=== PATIENT | female | born 1985 ===

== ENCOUNTER 2018-09-15 21:11 | Emergency (ER) | payer OTHER ==
[2018-09-15 21:30] VITALS: RESP 18; O2SAT 98
--- NOTE | 2018-09-15 21:38 | ED PDOC ---
Arrival/HPI - General Chief Complaint: Cough, Cold, Congestion Historian: Patient - History of Present Illness Narrative History of Present Illness (Text): 09/15/18 21:36 33 y/o female, no significant pmh, nkda, c/o runny nose/cough/fatigue x 2 days with no recent traveling. Pt. has positive sick contact with another patient which confirmed with +influenza, no chills, no night sweat, no abdominal or pelvic pain, no dizziness, no other medical or psychological complaints. Past Medical History - Provider Review Nursing Documentation Reviewed: Yes - Infectious Disease Hx of Infectious Diseases: None - Cardiac Hx Cardiac Disorders: No - Psychiatric Hx Substance Use: No - Surgical History Other/Comment: breast reduction - Anesthesia Hx Anesthesia: No Family/Social History - Physician Review Nursing Documentation Reviewed: Yes Family/Social History: Unknown Family HX Smoking Status: Never Smoked Hx Alcohol Use: No Hx Substance Use: No Allergies/Home Meds Allergies/Adverse Reactions: Allergies No Known Allergies Allergy (Verified 09/15/18 21:30) Review of Systems - Review of Systems Constitutional: Fatigue, Fevers Eyes: absent: Vision Changes ENT: Rhinorrhea. absent: Hearing Changes Respiratory: Cough, Wheezing. absent: SOB, Sputum Cardiovascular: absent: Chest Pain Gastrointestinal: absent: Abdominal Pain, Diarrhea, Nausea, Vomiting Musculoskeletal: Myalgias. absent: Arthralgias, Back Pain, Neck Pain, Joint Swelling Skin: absent: Rash, Pruritis Neurological: absent: Headache, Dizziness Psychiatric: absent: Anxiety, Depression, Suicidal Ideation Physical Exam Vital Signs Reviewed: Yes Vital Signs Temp Pulse Resp BP Pulse Ox 09/15/18 21:30 99.2 F 103 H 18 115/77 98 Temperature: Afebrile Blood Pressure: Normal Pulse: Tachycardic Respiratory Rate: Normal Appearance: Positive for: Well-Appearing, Non-Toxic, Comfortable Pain Distress: Mild Mental Status: Positive for: Alert and Oriented X 3 - Systems Exam Head: Present: Atraumatic, Normocephalic Pupils: Present: PERRL Extroacular Muscles: Present: EOMI Conjunctiva: Present: Normal Ears: Present: NORMAL TM, Normal Canal. No: Erythema Mouth: Present: Moist Mucous Membranes Pharnyx: No: ERYTHEMA, EXUDATE, TONSILS ENLARGED Nose (External): Present: Atraumatic. No: Abrasion, Contusion, Laceration Nose (Internal): Present: Normal Inspection, No Active Bleeding, Rhinorrhea. No: Septal Hematoma, Epistaxis Neck: Present: Normal Range of Motion, Trachea Midline. No: Meningeal Signs, MIDLINE TENDERNESS, Paraspinal Tenderness, Lymphadenopathy Respiratory/Chest: Present: Clear to Auscultation, Good Air Exchange. No: Respiratory Distress, Accessory Muscle Use, Wheezes, Decreased Breath Sounds, Rales, Retracting, Rhonchi, Tachypneic, Tender to Palpation Cardiovascular: Present: Regular Rate and Rhythm, Normal S1, S2. No: Murmurs Abdomen: No: Tenderness, Distention, Peritoneal Signs, Rebound, Guarding Back: Present: Normal Inspection Upper Extremity: Present: Normal Inspection, Normal ROM, Neurovascularly Intact, Capillary Refill < 2s. No: Cyanosis, Edema, Deformity Lower Extremity: Present: Normal Inspection, Normal ROM, Neurovascularly Intact, Capillary Refill < 2 s. No: Edema, Deformity Neurological: Present: GCS=15, CN II-XII Intact, Speech Normal, Motor Func Grossly Intact, Gait Normal, Memory Normal Skin: Present: Warm, Dry, Normal Color. No: Rashes Psychiatric: Present: Alert, Oriented x 3, Normal Insight, Normal Concentration Medical Decision Making ED Course and Treatment: 09/15/18 21:38 -rapid flu -tylenol and azithromycin -observe and reassess 09/15/18 22:15 -Urine hcg is negative -Rapid flu is negative, highly suspected, tamiflu ordered -Pt. is non-toxic looking, daughter positive for influenza in the ER, will treat as influenza as well with URI. -Discharge home with tamiflu, zithromycin, bromfed dm, tylenol, stay hydrated, follow up with your own pmd within 2 days, return to the ER for any new or worsening signs or symptoms. - PA / TAPE STRINGER / Resident Statement / has reviewed & agrees with the documentation as recorded. Disposition/Present on Arrival - Present on Arrival Any Indicators Present on Arrival: No History of DVT/PE: No History of Uncontrolled Diabetes: No Urinary Catheter: No History of Decub. Ulcer: No History Surgical Site Infection Following: None - Disposition Have Diagnosis and Disposition been Completed?: Yes Diagnosis: Flu-like symptoms, URI (upper respiratory infection) Disposition: HOME/ ROUTINE Disposition Time: 22:17 Patient Plan: Discharge Condition: GOOD Additional Instructions: -Discharge home with tamiflu, zithromycin, bromfed dm, tylenol, stay hydrated, follow up with your own pmd within 2 days, return to the ER for any new or wor sening signs or symptoms. Prescriptions: Acetaminophen [Tylenol] 2 cap PO QID #30 capsule Azithromycin [Zithromax] 250 mg PO DAILY #4 tab Brompheniramine/Pseudoephed/Dm [Bromfed Dm Cough 118 ml] 10 ml PO QID PRN #250 ml PRN Reason: Other Oseltamivir Cap [Tamiflu] 75 mg PO BID #9 cap Referrals: PCP,NO [Primary Care Provider] - [place] up with [place] [facility] [place] [facility] [place] - Follow up with primary Forms: [email or web address] (Portuguese), WORK NOTE
[2018-09-15 23:04] VITALS: BP 129/72; PULSE 92
[2018-09-15 23:44] VITALS: TEMP 99
== END 2018-09-15 23:44 | disposition home or self-care (01) ==
LOC: ED 21:11
DX: J11.1 Influenza due to unidentified influenza virus with other respiratory manifestations (principal)